=== PATIENT | male | born 1940 | race Caucasian/White ===

== ENCOUNTER 2023-04-03 11:06 | Emergency (ER) | payer MEDICARE, OTHER ==
[2023-04-03] VITALS (8 sets, daily range): BP systolic 138–170; BP diastolic 68–95
[~2023-04-03] VITALS: Ht 175.3 cm; Wt 95.6 kg
[2023-04-03] MEDS ORDERED: AMOX/K CLAV875 M1 PO ×2 (12:52→12:53)
== END 2023-04-03 13:25 | disposition home or self-care (01) ==
LOC: ED 11:06
PROC: 0HQLXZZ Repair Left Lower Leg Skin, External Approach (ICD-10-PCS; principal; 2023-04-03)
DX: S81.852A Open bite, left lower leg, initial encounter (principal); I10 Essential (primary) hypertension; E11.9 Type 2 diabetes mellitus without complications; E78.00 Pure hypercholesterolemia, unspecified; W54.0XXA Bitten by dog, initial encounter; Y93.55 Activity, bike riding

== ENCOUNTER 2023-09-25 11:12 | Emergency (ER) | payer MEDICARE, OTHER ==
[~2023-09-25] VITALS: Ht 175.3 cm; Wt 95.2 kg
[~2023-09-25 11:12] MED LIST: AMOX/K CLAV875 M1 PO
[2023-09-25 11:24] VITALS: BP 140/78
[2023-09-25 11:30] VITALS: BP 136/84
[2023-09-25 11:46] VITALS: BP 121/78
[2023-09-25] MEDS ORDERED: AMOX/K CLAV875 M1 PO (11:48)
[2023-09-25 12:01] VITALS: BP 133/78
== END 2023-09-25 12:03 | disposition home or self-care (01) ==
LOC: ED 11:12
DX: S80.871A Other superficial bite, right lower leg, initial encounter (principal); I10 Essential (primary) hypertension; E11.9 Type 2 diabetes mellitus without complications; E78.5 Hyperlipidemia, unspecified; W54.0XXA Bitten by dog, initial encounter; Y93.55 Activity, bike riding; Y92.410 Unspecified street and highway as the place of occurrence of the external cause